=== PATIENT | female | born 1995 | race Caucasian/White ===

== ENCOUNTER 2017-05-11 02:00 | Inpatient (IN) | payer MEDICAID, OTHER ==
[~2017-05-11] VITALS: Ht 152.4 cm; Wt 79.6 kg
[2017-05-11 02:33] VITALS: BP 120/66
[2017-05-11 02:35] VITALS: Ht 152.4 cm; Wt 79.6 kg
[2017-05-11] MEDS ORDERED: LIDOCAINE 1% (MPF) 30 ML INJ INJ PRN (03:00)
[2017-05-11] MEDS ORDERED: OXYTOCIN 30 UNITS/LR 500 ML IV PRN (03:00)
[2017-05-11] MEDS ORDERED: IBUPROFEN 600 MG TAB PO PRN (03:00)
[2017-05-11] MEDS ORDERED: AMPICILLIN 2 GM/NS (PMX) 100 ML IV ONE (03:00)
[2017-05-11] MEDS ORDERED: LACTATED RINGER'S 1,000 ML IV PRN (03:00)
[2017-05-11] MEDS ORDERED: CARBOPROST 250 MCG INJ IM PRN (03:00)
[2017-05-11] MEDS ORDERED: OXYTOCIN 30 UNITS/LR 500 ML IV SCH ×3 (03:00→11:00)
[2017-05-11] MEDS ORDERED: METHYLERGONOVINE 0.2 MG INJ IM PRN (03:00)
[2017-05-11] MEDS ORDERED: MISOPROSTOL 200 MCG TAB PR PRN (03:00)
--- NOTE | 2017-05-11 03:20 | TRIAGE ---
OB Triage Datetime Report Generated by CPN: 05/11/2017 03:20 Datetime: 05/11/2017 02:54 Stage of : Labor Labor Evaluation Frequency: X2 Monitor Mode: External Duration (sec)2399: 70-110 Quality: Mild Pattern: Normal: <= 5 Contractions in 10 Minutes Resting Tone [place]: Relaxed Contraction Comments: PT DENIES FEELING UC'S OR PAIN AT THIS TIME Heart Rate FHR Baseline Rate: 130 Monitor Mode: External US Variability: Moderate 6-25 bpm Accelerations: 15X15 Decelerations: None Category: Category I Datetime: 05/11/2017 02:37 Time of Arrival: 05/11/2017 01:55 EGA: 37.0 Arrived By: Wheelchair Arrived From: Emergency Dept Chief Complaint: LEAKING CLEAR FLUIDS SINCE 0030 Movement: Present Contractions: Irregular Time Contractions Began: 05/11/2017 00:30 Contractions: "ONCE IN A WHILE" Rupture of Membranes: Ruptured Vaginal Bleeding: None Vaginal Discharge: Denies Recent Sexual Intercouse: Denies Abdominal Trauma: Not Applicable Patient Complaints: Other Time Provider Notified: 05/11/2017 02:40 Provider Notified: LISA Initial Plan: EFM, VS, SVE Datetime: 05/11/2017 02:28 Stage of : OB Triage Vaginal Exam Dilatation (cms): 0.5 Effacement (%): 30 Station: -3 Exam By: PADMINI VELASCO Membrane Status: Ruptured Membranes Ruptured Date/Time: 05/11/2017 00:30 Membranes Rupture Method: Spontaneous Amniotic Fluid Color: Clear (Annotations: NOTED ON CHUX) Amniotic Fluid Amount: Moderate Amniotic Fluid Odor: None Vaginal Bleeding: None Cervix, Consistency: Moderate Cervix, Position: Posterior Datetime: 05/11/2017 02:20 Stage of : OB Triage Assessment Type: Triage Maternal Assessment Level of Consciousness: Fully Conscious DTR's/Clonus: DTRs 2+; No Clonus Headache: Denies Blurred Vision: No Respiratory Effort: Unlabored; Regular Rhythm; Equal Expansion Breath Sounds, Left: Clear and Equal Breath Sounds, Right: Clear and Equal Nausea/Vomiting: Denies RUQ Epigastric Pain: Denies Lower Extremities Edema: Bilateral Lower Extremities Degree: 2+ Upper Extremities Edema: None Degree: None Facial Edema: None Temperature Route: Oral Fall Risk Assessment History of Falling: (0) No Secondary Diagnosis: (0) No Ambulatory Aid: (0) Bedrest/Nurse Assist IV Therapy: (0) No Gait: (0) Normal/Bedrest/Immobile Mental Status: (0) Oriented to Own Ability Fall Score: 0 Fall Risk Score Definition: No Risk: No action required Pain Assessment Pain Scale: 0 Pain Presence: None/Denies Pain Type: N/A Datetime: 05/11/2017 02:03 Stage of : OB Triage
[2017-05-11] MEDS: LACTATED RINGER'S 1,000 ML IV SCH ×4 (04:17→23:07)
[2017-05-11 06:04] LABS: BASOPHILS % 0.3 % (0.0-2.0); EOSINOPHILS # 0.3 10^3/ul (0.0-0.5); EOSINOPHILS % 2.8 % (0.0-7.0); HEMATOCRIT 36.5 % (37.0-47.0); HEMOGLOBIN 12.6 g/dl (12.0-16.0); LYMPHOCYTES % 22.1 % (18.0-55.0); MEAN CORPUSCULAR HGB CONC 34.5 g/dl (32.0-37.0); MEAN CORPUSCULAR VOLUME 89.9 fl (72.0-104.0); MEAN PLATELET VOLUME 11.7 fl (7.4-10.4); MONOCYTE # 0.7 10^3/ul (0.3-0.9); MONOCYTES % 7.2 % (0.0-13.0); NEUTROPHILS % 66.8 % (30.0-74.0); PLATELET COUNT 151 10^3/UL (140-415); RED BLOOD COUNT 4.06 10^6/ul (4.20-5.40); RED CELL DISTRIBUTION WIDTH 12.2 % (11.5-14.5)
[2017-05-11 06:14] LABS: INR 0.9; PROTIME 12.1 Sec (12.2-14.2); PT RATIO 0.9
[2017-05-11 06:15] LABS: PARTIAL THROMBOPLASTIN TIME 26.4 Sec (25.0-35.0)
[2017-05-11] MEDS ORDERED: AMPICILLIN 1 GM/NS (PMX) 50 ML IV SCH (07:00)
--- NOTE | 2017-05-11 07:04 | HP ---
Date/Time of Note Date/Time of Note DATE: 05/11/17 TIME: 06:55 OB - History Hx of Present Free Text/Dictation 21y.o primigravida at 37weeks with rupture of membranewhich occured 0030 with uterine contractions irregularly. initial VE ,0.5/30% /-3 clear fluid EFM tracing reactive GBS neg admitted for expectant management ,poss augmentation Chief Complaint: srom Estimated Due Date: Jun 01, 2017 : 1 Para: 0 Spontaneous : 0 Therapeutic : 0 Care: Good Care Ultrasounds: Normal mid trimester US Obstetrical Complications: None Medical Complications: None Past Family/Social History * Past Medical, Surgical, Family and Obstetric Histories reviewed from chart. Blood Type: O+ Rubella: immune RPR/VDRL: Negative GBS Status: Negative HBsAG: Negative OB Admission Exam Vital Signs Vital Signs Vital Signs Date Time Temp Pulse Resp B/P Pulse Ox O2 Delivery O2 Flow Rate FiO2 05/11/17 02:33 98.0 71 120/66 Room Air Physical Exam HEENT: WNL Heart: Rhythm Normal Lungs: Clear, Equal Abdomen: WNL Extremities: Normal Reflexes: Normal Cervical Dilatation: Fingertip Effacement: 25% Station: -3 Membranes: Ruptured Amniotic Fluid: Clear Heart Rate: 140's Accelerations: Accelerations Present Decelerations: No Decelerations Varibility: Moderate Contractions on Admission: >10 Minutes Apart Intensity: Mild Last 72 hours Lab Results CBC & BMP 05/11/17 04:23 OB Assessment/Plan Reason for admission: rupture of membranes (augmentation) Plan: Expectant Management, Other (augmentation) RAFFY GONZALEZ MD May 11, 2017 07:04
[2017-05-11] MEDS ORDERED: MINERAL OIL LIGHT 10 ML VIAL TOP PRN (08:00)
[2017-05-11] MEDS ORDERED: AMPICILLIN 2 GM/NS (PMX) 100 ML IVPB ONE (11:00)
[2017-05-11] MEDS: AMPICILLIN 1 GM/NS (PMX) 50 ML IVPB SCH ×3 (14:43→23:05)
[2017-05-11] MEDS ORDERED: FENTAnyl 2MCG/ML-ROPIV 0.2% 100 ML ONE (14:58)
[2017-05-11] MEDS ORDERED: NALOXONE (0.4 MG/ML) INJ IV PRN (16:00)
[2017-05-11] MEDS: FENTAnyl 2MCG/ML-ROPIV 0.2% 100 ML BAG EPI SCH ×2 (16:06→23:06)
[2017-05-12] MEDS: AMPICILLIN 1 GM/NS (PMX) 50 ML IVPB SCH ×2 (02:45→07:09)
[2017-05-12] MEDS: LACTATED RINGER'S 1,000 ML IV SCH (05:41)
[2017-05-12] MEDS: FENTAnyl 2MCG/ML-ROPIV 0.2% 100 ML BAG EPI SCH (07:23)
--- NOTE | 2017-05-12 10:20 | LDN ---
Date/Time of Note Date/Time of Note DATE: 05/12/17 TIME: 10:14 Delivery Summary 37 weeks premature rupture of membrane required labor augmentation was covered with antibiotic, normal spontaneous vaginal delivery of a baby boy from OA position shoulders delivered with no difficulty rest of the baby's body followed cord clamped after stopped pulsation placenta spontaneous expulsion inspected complete blood loss 200 mL patient sustained small first-degree vaginal laceration repaired with 3-0 chromic catgut Weeks of Gestation 37 week Placenta Delivered: Spontaneously Meconium: none Episiotomy: No Perineal laceration: 1 Laceration repair: First-degree vaginal laceration repaired with 3-0 chromic catgut Anesthesia type: Epidural Estimated blood loss: 200 Sponge & Needle done & correct: Yes All needle counts correct: Yes Any foreign bodies felt in the: No Problems: Infant Delivery Information Sex Infant Sex: male Apgars 1 Minute: 8 5 Minute: 9 Suctioning Nose & mouth suctioned at joe: Yes Delee suction performed: No Umbilical Cord Umbilical cord with: 3 Vessels Cord presentations: nuchal cord Nuchal cord present X: 1 Cord Blood was obtained: Yes MITESH RICKS MD May 12, 2017 10:20
[2017-05-12 12:20] VITALS: BP 123/66; PULSE 81; RESP 19
[2017-05-12 12:50] VITALS: BP 127/63; PULSE 85; RESP 19
[2017-05-12] MEDS ORDERED: BENZOCAINE 20% 56 ML SPRAY TOP PRN (13:00)
[2017-05-12] MEDS ORDERED: ACETAMINOPHEN 325 MG TAB PO PRN (13:00)
[2017-05-12] MEDS ORDERED: OXYCODONE/ASPIRIN (4.88/325) TAB PO PRN ×2 (13:00)
[2017-05-12] MEDS ORDERED: DIBUCAINE 1% 30 GM OINT PR PRN (13:00)
[2017-05-12] MEDS ORDERED: ONDANSETRON 4 MG INJ IV PRN (13:00)
[2017-05-12] MEDS ORDERED: WITCH HAZEL/GLYCERIN PAD PR PRN (13:00)
[2017-05-12] MEDS ORDERED: LANOLIN 7 GM TUBE TOP PRN (13:00)
[2017-05-12] MEDS ORDERED: HYDROCODONE/APAP (5/325) TAB PO PRN ×2 (13:00)
[2017-05-12] MEDS: OXYTOCIN 30 UNITS/LR 500 ML IV SCH (14:29)
[2017-05-12 15:55] VITALS: BP 120/75; PULSE 64; RESP 19
[2017-05-12] MEDS: IBUPROFEN 600 MG TAB PO SCH ×2 (17:39→23:51)
[2017-05-12 20:20] VITALS: BP 109/67; PULSE 73; RESP 18
[2017-05-12] MEDS: SENNA/DOCUSATE NA (8.6MG/50MG) TAB PO SCH (23:51)
[2017-05-13 05:39] VITALS: BP 126/72; PULSE 56; RESP 19
[2017-05-13] MEDS: IBUPROFEN 600 MG TAB PO SCH ×3 (06:04→17:18)
[2017-05-13 07:40] VITALS: BP 123/71; PULSE 69; RESP 19
[2017-05-13 07:49] LABS: BASOPHILS % 0.3 % (0.0-2.0); EOSINOPHILS # 0.2 10^3/ul (0.0-0.5); EOSINOPHILS % 1.8 % (0.0-7.0); HEMATOCRIT 29.5 % (37.0-47.0); LYMPHOCYTES # 1.8 10^3/ul (0.8-2.9); LYMPHOCYTES % 15.8 % (18.0-55.0); MEAN CORPUSCULAR HEMOGLOBIN 30.9 pg (29.0-33.0); MEAN CORPUSCULAR HGB CONC 33.9 g/dl (32.0-37.0); MEAN PLATELET VOLUME 11.3 fl (7.4-10.4); MONOCYTE # 0.7 10^3/ul (0.3-0.9); MONOCYTES % 6.6 % (0.0-13.0); NEUTROPHIL # 8.4 10^3/ul (1.6-7.5); NEUTROPHILS % 74.8 % (30.0-74.0); PLATELET COUNT 122 10^3/UL (140-415); RED BLOOD COUNT 3.24 10^6/ul (4.20-5.40); RED CELL DISTRIBUTION WIDTH 12.4 % (11.5-14.5); WHITE BLOOD COUNT 11.3 10^3/ul (4.8-10.8)
[2017-05-13 07:52] LABS: POSITIVE DIFF @See below
[2017-05-13] MEDS: SENNA/DOCUSATE NA (8.6MG/50MG) TAB PO SCH ×2 (09:18→21:26)
[2017-05-13] MEDS: OXYTOCIN 30 UNITS/LR 500 ML IV SCH (09:43)
--- NOTE | 2017-05-13 11:00 | PN ---
Date/Time of Note Date/Time of Note DATE: 05/13/17 TIME: 10:59 OB Subjective Subjective Subjective day 2 Afebrile VSs Abdomen soft Uterus firm lochia normal extremity normal Laboratory Tests Test 05/13/17 07:17 White Blood Count 11.310^3/ul Red Blood Count 3.2410^6/ul Hemoglobin 10.0g/dl Hematocrit 29.5% Mean Corpuscular Volume 91.0fl Mean Corpuscular Hemoglobin 30.9pg Mean Corpuscular Hemoglobin Concent 33.9g/dl Red Cell Distribution Width 12.4% Platelet Count 32995^3/UL Mean Platelet Volume 11.3fl Neutrophils % 74.8% Lymphocytes % 15.8% Monocytes % 6.6% Eosinophils % 1.8% Basophils % 0.3% Nucleated Red Blood Cells % 0.0/100WBC Neutrophils # 8.410^3/ul Lymphocytes # 1.810^3/ul Monocytes # 0.710^3/ul Eosinophils # 0.210^3/ul Basophils # 0.010^3/ul Nucleated Red Blood Cells # 0.010^3/ul Current Medications Medications (Trade) Dose Ordered Sig/Williams Route PRN Reason Start Time Stop Time Status Last Admin Dose Admin Lactated Ringer's 1,000 ml @ 125 mls/hr Q8H IV 05/11/17 02:46 05/13/17 09:41 DC 05/12/17 05:41 Ampicillin 100 ml @ 100 mls/hr ONCE ONCE IV 05/11/17 03:00 05/11/17 03:09 DC Ampicillin (Ampicillin 1 Gm/ NS (Pmx)) 50 ml @ 100 mls/hr Q4H IV 05/11/17 07:00 05/11/17 07:00 DC Lidocaine 30 ml 30 ml ONCE PRN INJ EPISIOTOMY/TEARING 05/11/17 03:00 05/12/17 12:36 DC Oxytocin/Lactated Ringer's 500 ml @ 125 mls/hr ONCE -MAY REPEAT X1 IV 05/11/17 03:00 05/12/17 12:36 DC 05/12/17 10:02 Oxytocin/Lactated Ringer's 500 ml @ 125 mls/hr ONCE IV 05/11/17 03:00 Ibuprofen 600 mg 600 mg ONCE PRN PO Mild Pain (Pain Score 1-3) 05/11/17 03:00 05/12/17 12:36 DC 05/12/17 11:47 Lactated Ringer's 1,000 ml @ 2,000 mls/hr Q30M PRN IV PRE-EPIDURAL BOLUS 05/11/17 03:00 05/12/17 12:36 DC Oxytocin/Lactated Ringer's 500 ml @ 0 mls/hr ONCE PRN IV For Hemorrhage Management 05/11/17 03:00 05/12/17 12:36 DC Methylergonovine Maleate (Methergine) 0.2 mg ONCE PRN IM VAGINAL BLEEDING 05/11/17 03:00 05/12/17 12:37 DC Carboprost Tromethamine (Hemabate) 250 mcg ONCE PRN IM VAGINAL BLEEDING 05/11/17 03:00 05/12/17 12:37 DC Misoprostol (Cytotec) 1,000 mcg ONCE PRN CA VAGINAL BLEEDING 05/11/17 03:00 05/12/17 12:37 DC Mineral Oil 30 ml 30 ml ONCE PRN TOP DELIVERY 05/11/17 08:00 05/11/17 15:00 DC Oxytocin/Lactated Ringer's 500 ml @ 0 mls/hr Q0M IV 05/11/17 11:00 05/12/17 12:37 DC 05/11/17 11:21 Ampicillin 100 ml @ 100 mls/hr ONCE ONCE IVPB 05/11/17 11:00 05/11/17 11:59 DC 05/11/17 11:10 Ampicillin 50 ml @ 100 mls/hr Q4 IVPB 05/11/17 15:00 05/12/17 12:37 DC 05/12/17 07:09 Fentanyl/ Ropivacaine 100 ml @ ud STK-MED ONCE .ROUTE 05/11/17 14:58 05/11/17 14:59 DC Naloxone HCl (Narcan) 0.2 mg Q2M PRN IV FOR RESP RATE 8 OR LESS 05/11/17 16:00 05/12/17 12:37 DC Fentanyl/ Ropivacaine 100 ml 100 ml EPIDURAL (PCEA) EPI 05/11/17 16:00 05/12/17 12:37 DC 05/12/17 07:23 Oxytocin/Lactated Ringer's 500 ml @ 125 mls/hr Q4H IV 05/12/17 12:32 05/12/17 20:31 DC 05/12/17 14:29 Ibuprofen (Motrin) 600 mg Q6 PO 05/12/17 18:00 05/13/17 06:04 Acetaminophen (Tylenol Tab) 650 mg Q4H PRN PO PAIN LEVEL 1-5 05/12/17 13:00 Acetaminophen/ Hydrocodone Bitart ([place] (5/325)) 1 tab Q4H PRN PO PAIN LEVEL 1-5 05/12/17 13:00 Acetaminophen/ Hydrocodone Bitart ([place] (5/325)) 2 tab Q4H PRN PO PAIN LEVEL 6-10 05/12/17 13:00 Oxycodone/Aspirin (Percodan) 1 tab Q3H PRN PO PAIN LEVEL 1-5 05/12/17 13:00 Oxycodone/Aspirin (Percodan) 2 tab Q3H PRN PO PAIN LEVEL 6-10 05/12/17 13:00 Ondansetron HCl (Zofran Inj) 4 mg Q6H PRN IV NAUSEA AND/OR VOMITING 05/12/17 13:00 Senna/Docusate Sodium (Senokot-S) 1 tab BID PO 05/12/17 21:00 05/13/17 09:18 [place]/ Glycerin (Tucks Pads) 1 pad BEDSIDE MEDICATION PRN CA HEMORRHOID/EPISIOTMY PAIN 05/12/17 13:00 05/12/17 14:30 Benzocaine (Dermoplast [place]) 1 spray BEDSIDE MEDICATION PRN TOP HEMORRHOID/EPISIOTMY PAIN 05/12/17 13:00 05/12/17 14:30 Dibucaine (Nupercainal) 1 applic BEDSIDE MEDICATION PRN CA HEMORRHOID/EPISIOTMY PAIN 05/12/17 13:00 Lanolin (Xow-M-Sdobua) 1 applic BEDSIDE MEDICATION PRN TOP BEDSIDE FOR NELDA TO NIPPLES 05/12/17 13:00 05/12/17 14:30 Measles/Mumps/ Rubella Vaccine Live (Mmr Ii Vaccine) 0.5 ml ONCE ONCE SC* 05/14/17 09:00 05/14/17 09:01 MITESH RICKS MD May 13, 2017 11:00
[2017-05-13 16:00] VITALS: BP 116/75; RESP 19
[2017-05-13 20:00] VITALS: BP 119/66; PULSE 65; RESP 18
[2017-05-14] MEDS: IBUPROFEN 600 MG TAB PO SCH ×3 (00:03→12:36)
[2017-05-14 04:00] VITALS: BP 115/75; PULSE 62; RESP 18
[2017-05-14 08:00] VITALS: BP 117/74; PULSE 65; RESP 18
[2017-05-14] MEDS ORDERED: MEASLES,MUMPS,RUBELLA VACCINE INJ SC* ONE (09:00)
--- NOTE | 2017-05-14 09:04 | DS ---
Date/Time of Note Date/Time of Note DATE: 05/14/17 TIME: 09:02 Discharge Summary Admission/Discharge Info Admit Date/Time May 11, 2017 at 02:40 Discharge Date/Time May 14, 2017 at 855 Discharge Diagnosis Post normal vaginal delivery day 2 Patient Condition: Good Procedures Normal vaginal delivery Hx of Present Illness Term status 2 days post normal vaginal delivery Hospital Course Satisfactory uneventful Follow-up Plan instructions given recommended appointment with the clinic in 2 weeks Primary Care Provider Not On Staff Doctor Time spent on discharge: < 30 minutes MITESH RICKS MD May 14, 2017 09:04
[2017-05-14] MEDS: SENNA/DOCUSATE NA (8.6MG/50MG) TAB PO SCH (09:10)
== END 2017-05-14 14:07 | disposition home or self-care (01) | DRG 775 ==
LOC: OBT 02:00 → L-D 02:00 → OBT 02:40 → L-D 02:40 → PP1 05-12 12:21
PROVIDERS: ADMIT Obstetrics & Gynecology; ATTEND Obstetrics & Gynecology
PROC: 10E0XZZ Delivery of Products of Conception, External Approach (ICD-10-PCS; principal; 2017-05-12)
PROC: 0HQ9XZZ Repair Perineum Skin, External Approach (ICD-10-PCS; 2017-05-12)
DX: O60.14X0 Preterm labor third trimester with preterm delivery third trimester, not applicable or unspecified (principal); O69.81X0 Labor and delivery complicated by cord around neck, without compression, not applicable or unspecified; Z37.0 Single live birth; Z3A.37 37 weeks gestation of pregnancy; O70.0 First degree perineal laceration during delivery
CPT/HCPCS: 62319; 85025; 85610; 85730; 86592; 86900; 86901; G0463; J0290; J2590; J3010; J7120